=== PATIENT | female | born 1960 | race Caucasian/White ===

== ENCOUNTER → 2025-04-24 | Outpatient (CLI) | payer OTHER, SELFPAY ==
--- NOTE | 2025-04-23 16:30 | LES_PTH ---
PATIENT: ELVIS POLANCO LOC: [facility] U#:[id number] AGE/SX: 64/F ROOM: RE04/24/[address]: Dr. Brody Villavicencio MD : 1960 BED: DIS: 04/24/2025 SPEC #: [id number] RECD: 04/24/25 10:04 STATUS: BHAKTI LEONELA #: [id number] ZANDER: 04/23/25 16:[address]: Brody Villavicencio DEPT: SURGICAL PATHOLOGY RECD BY: Chip Hernández Tissues: A - Skin of eyelid, NOS Procedures: Surgery Specimen Level IV HEADER OPERATION: Left lower eyelid lesion excision PRE-OP DIAGNOSIS: Nevus vs papilloma TISSUE SUBMITTED: A- Left lower eyelid lesion MICROSCOPIC DIAGNOSIS A. Skin, eyelid, left, lower, biopsy: - Acrochordon (skin tag). MICROSCOPIC DESCRIPTION Slides are reviewed. GROSS DESCRIPTION A. Received in formalin labeled with the patient's name and date of . Designated as left lower eyelid is a 0.3 x 0.2 x <0.1 cm cloud to light brown, firm portion of tissue. Entirely submitted in 1 cassette. [place] 04/24/2025 CPT:05722
== END | disposition home or self-care (01) ==
PROVIDERS: Referring Provider Ophthalmology; Visit Provider Ophthalmology
DX: L91.8 Other hypertrophic disorders of the skin (principal)
CPT/HCPCS: 88305